=== PATIENT | male | born 1965 | race Two or more races ===

== ENCOUNTER 2020-09-10 09:30 | Outpatient (CLI) | payer OTHER | END 2020-09-10 09:36 | disposition home or self-care (01) | LOC: SONOGRAMA 09:30 | PROVIDERS: ATTEND Pathology Anatomic Pathology & Clinical Pathology | DX: E04.1 Nontoxic single thyroid nodule (principal) ==

== ENCOUNTER 2021-01-07 08:29 | Outpatient (CLI) | payer OTHER | END 2021-01-07 08:34 | disposition home or self-care (01) | LOC: SONOGRAMA 08:29 | PROVIDERS: ATTEND Pathology Anatomic Pathology & Clinical Pathology | DX: E04.2 Nontoxic multinodular goiter (principal) ==